=== PATIENT | female | born 1940 ===

== ENCOUNTER 2018-03-27 16:47 | Inpatient (IN) | payer MEDICARE, BC ==
[~2018-03-27] VITALS: Ht 160 cm; Wt 54.1 kg
[2018-03-27 20:00] VITALS: BP 173/81
[2018-03-27] MEDS ORDERED: DOCUSATE 100 MG CAPSULE PO PRN (20:30)
[2018-03-27] MEDS ORDERED: TEMAZEPAM 15 MG CAPSULE PO PRN (20:30)
[2018-03-27] MEDS ORDERED: PLEASE ENTER ALLERGIES MC SCH (21:00)
[2018-03-27 21:38] LABS: INTERNATIONAL NORMALIZED RATIO 0.98 (0.93-1.1); PROTHROMBIN TIME 10.2 Seconds (9.6-11.5)
[2018-03-27 21:40] LABS: ALANINE AMINOTRANSFERASE 20 U/L (12-78); ALBUMIN 3.8 g/dL (3.4-5.0); ANION GAP 9 mmol/L (5-15); CALCIUM 8.9 mg/dL (8.5-10.1); CHLORIDE 99 mmol/L (98-107); CREATININE 0.89 mg/dL (0.55-1.02)
[2018-03-27 21:42] LABS: ALKALINE PHOSPHATASE 70 U/L (45-117); BILIRUBIN,TOTAL 0.4 mg/dL (0.2-1.0); TOTAL PROTEIN 7.6 g/dL (6.4-8.2)
[2018-03-27] MEDS ORDERED: HEPARIN 5,000 UNITS/ML, 1ML IV PRN (22:00)
[2018-03-27] MEDS ORDERED: HEPARIN 25,000 UNITS/500ML PMX 500 ML IV PRN (22:00)
[2018-03-27] MEDS ORDERED: HEPARIN 5,000 UNITS/ML, 1ML IV ONE (22:00)
[2018-03-27 22:38] LABS: BASOPHILS # (AUTO) 0.04 x10^3/uL (0-0.1); BASOPHILS % (AUTO) 1 % (0-1); EOSINOPHILS # (AUTO) 0.11 x10^3/uL (0-0.4); EOSINOPHILS % (AUTO) 1 % (1-7); LYMPHOCYTES # (AUTO) 2.33 x10^3/uL (1-3.4); LYMPHOCYTES % (AUTO) 29 % (22-44); MD NO; MEAN CORPUSCULAR HEMOGLOBIN 30.1 pg (27.0-34.8); MEAN CORPUSCULAR HGB CONC 33.1 g/dL (32.4-35.8); MEAN PLATELET VOLUME 6.4 fL (7.4-10.4); MONOCYTES # (AUTO) 1.28 x10^3/uL (0.2-0.8); MONOCYTES % (AUTO) 16 % (2-9); NEUTROPHILS % (AUTO) 54 % (42-75); PLATELET COUNT 277 x10^3/uL (130-400); RED BLOOD COUNT 3.64 x10^6/uL (3.82-5.3)
[2018-03-27] MEDS ORDERED: ATOR20TA9 PO (22:40)
[2018-03-27] MEDS ORDERED: ACET-711 PO (22:40)
[2018-03-27] MEDS ORDERED: LEVO88TA2 PO (22:40)
[2018-03-27] MEDS ORDERED: AMLO10TA6 PO (22:40)
[2018-03-27] MEDS ORDERED: CARV-39 PO (22:40)
[2018-03-28 02:57] VITALS: BP 144/53
[2018-03-28] MEDS ORDERED: LIDOCAINE-MPF 1%, 5ML ONE ×2 (07:07)
[2018-03-28] MEDS ORDERED: FENTANYL PF 100 MCG/2ML ONE (07:13)
[2018-03-28] MEDS ORDERED: NITROGLYCERIN 5 MG/ML, 10ML ONE (07:14)
[2018-03-28] MEDS ORDERED: PROTAMINE SULFATE 10 MG/ML, 25ML ONE (07:14)
[2018-03-28] MEDS ORDERED: NALOXONE 1 MG/ML, 2ML ONE (07:14)
[2018-03-28] MEDS ORDERED: HEPARIN 1,000 UNITS/ML, 10ML ONE (07:14)
[2018-03-28] MEDS ORDERED: ALTEPLASE 10 MG in SODIUM CHLORIDE 0.9% 90 ML IV SCH (08:30)
[2018-03-28] MEDS ORDERED: ALTEPLASE 100 MG in BAG 1 EACH IV ONE (08:30)
[2018-03-28] MEDS ORDERED: HEPARIN 25,000 UNITS/500ML PMX 500 ML IV SCH (08:35)
[2018-03-28] MEDS: morphine SULFATE 10 MG/ML, 1ML IVPush PRN ×2 (09:12→19:48)
[2018-03-28] MEDS: AMLODIPINE 5 MG TABLET PO SCH (09:12)
[2018-03-28 10:33] LABS: BASOPHILS # (AUTO) 0.06 x10^3/uL (0-0.1); BASOPHILS % (AUTO) 1 % (0-1); EOSINOPHILS # (AUTO) 0.05 x10^3/uL (0-0.4); EOSINOPHILS % (AUTO) 1 % (1-7); LYMPHOCYTES # (AUTO) 1.96 x10^3/uL (1-3.4); LYMPHOCYTES % (AUTO) 28 % (22-44); MD NO; MEAN CORPUSCULAR HEMOGLOBIN 29.3 pg (27.0-34.8); MEAN CORPUSCULAR HGB CONC 32.8 g/dL (32.4-35.8); MEAN CORPUSCULAR VOLUME 89.2 fL (80-100); MEAN PLATELET VOLUME 6.7 fL (7.4-10.4); MONOCYTES # (AUTO) 0.79 x10^3/uL (0.2-0.8); MONOCYTES % (AUTO) 12 % (2-9); NEUTROPHILS # (AUTO) 4.05 x10^3/uL (1.8-6.8); NEUTROPHILS % (AUTO) 59 % (42-75); PLATELET COUNT 279 x10^3/uL (130-400); RED BLOOD COUNT 3.87 x10^6/uL (3.82-5.3); RED CELL DISTRIBUTION WIDTH 14.9 % (9.6-15.2)
[2018-03-28] MEDS ORDERED: POTASSIUM CHLORIDE 20 MEQ in SODIUM CHLORIDE 0.45% 1,000 ML IV SCH (11:00)
[2018-03-28] MEDS ORDERED: POTASSIUM CHLORIDE 20 MEQ in SODIUM CHLORIDE 0.9% 250 ML IV ONE (11:00)
[2018-03-28] MEDS: ALTEPLASE 10 MG in SODIUM CHLORIDE 0.9% 90 ML IV SCH ×3 (12:16→21:36)
[2018-03-28 15:18] LABS: BASOPHILS # (AUTO) 0.05 x10^3/uL (0-0.1); BASOPHILS % (AUTO) 1 % (0-1); EOSINOPHILS # (AUTO) 0.05 x10^3/uL (0-0.4); EOSINOPHILS % (AUTO) 1 % (1-7); LYMPHOCYTES # (AUTO) 2.34 x10^3/uL (1-3.4); LYMPHOCYTES % (AUTO) 27 % (22-44); MD NO; MEAN CORPUSCULAR HEMOGLOBIN 29.6 pg (27.0-34.8); MEAN CORPUSCULAR VOLUME 89.6 fL (80-100); MEAN PLATELET VOLUME 6.8 fL (7.4-10.4); MONOCYTES # (AUTO) 0.97 x10^3/uL (0.2-0.8); MONOCYTES % (AUTO) 11 % (2-9); NEUTROPHILS # (AUTO) 5.18 x10^3/uL (1.8-6.8); NEUTROPHILS % (AUTO) 60 % (42-75); PLATELET COUNT 261 x10^3/uL (130-400); RED BLOOD COUNT 3.83 x10^6/uL (3.82-5.3); RED CELL DISTRIBUTION WIDTH 14.8 % (9.6-15.2)
[2018-03-28] MEDS: POTASSIUM CHLORIDE 20 MEQ TAB.ER.PRT PO SCH (16:50)
[2018-03-28] MEDS: CARVEDILOL 25 MG TABLET PO SCH (16:50)
[2018-03-28] MEDS ORDERED: POTASSIUM CHLORIDE 20 MEQ TAB.ER.PRT PO SCH (17:00)
[2018-03-28] MEDS: ONDANSETRON ODT 4 MG PO PRN (19:41)
[2018-03-28] MEDS: ATORVASTATIN 20 MG TABLET PO SCH (19:55)
[2018-03-28 20:39] LABS: BASOPHILS # (AUTO) 0.06 x10^3/uL (0-0.1); BASOPHILS % (AUTO) 1 % (0-1); EOSINOPHILS # (AUTO) 0.01 x10^3/uL (0-0.4); EOSINOPHILS % (AUTO) 0 % (1-7); LYMPHOCYTES # (AUTO) 1.07 x10^3/uL (1-3.4); LYMPHOCYTES % (AUTO) 11 % (22-44); MD NO; MEAN CORPUSCULAR HGB CONC 33.4 g/dL (32.4-35.8); MEAN CORPUSCULAR VOLUME 89.8 fL (80-100); MEAN PLATELET VOLUME 6.9 fL (7.4-10.4); MONOCYTES # (AUTO) 0.52 x10^3/uL (0.2-0.8); MONOCYTES % (AUTO) 5 % (2-9); NEUTROPHILS # (AUTO) 8.15 x10^3/uL (1.8-6.8); NEUTROPHILS % (AUTO) 83 % (42-75); PLATELET COUNT 257 x10^3/uL (130-400); RED BLOOD COUNT 3.82 x10^6/uL (3.82-5.3); RED CELL DISTRIBUTION WIDTH 14.6 % (9.6-15.2)
[2018-03-29] MEDS: ALTEPLASE 10 MG in SODIUM CHLORIDE 0.9% 90 ML IV SCH ×2 (02:36→07:20)
[2018-03-29 03:20] LABS: BASOPHILS # (AUTO) 0.02 x10^3/uL (0-0.1); BASOPHILS % (AUTO) 0 % (0-1); EOSINOPHILS % (AUTO) 0 % (1-7); LYMPHOCYTES % (AUTO) 15 % (22-44); MD NO; MEAN CORPUSCULAR HEMOGLOBIN 30.5 pg (27.0-34.8); MEAN CORPUSCULAR HGB CONC 33.6 g/dL (32.4-35.8); MEAN CORPUSCULAR VOLUME 90.9 fL (80-100); MEAN PLATELET VOLUME 7.1 fL (7.4-10.4); MONOCYTES # (AUTO) 0.76 x10^3/uL (0.2-0.8); MONOCYTES % (AUTO) 9 % (2-9); NEUTROPHILS # (AUTO) 6.48 x10^3/uL (1.8-6.8); NEUTROPHILS % (AUTO) 76 % (42-75); PLATELET COUNT 235 x10^3/uL (130-400); RED BLOOD COUNT 3.68 x10^6/uL (3.82-5.3); RED CELL DISTRIBUTION WIDTH 14.8 % (9.6-15.2)
[2018-03-29 03:32] LABS: ANION GAP 9 mmol/L (5-15); CALCIUM 8.6 mg/dL (8.5-10.1); CHLORIDE 99 mmol/L (98-107)
[2018-03-29 03:35] LABS: CREATINE KINASE, TOTAL 80 U/L (26-192); CREATININE 0.72 mg/dL (0.55-1.02)
[2018-03-29] MEDS: LEVOTHYROXINE 88 MCG TABLET PO SCH (05:53)
[2018-03-29] MEDS: CARVEDILOL 25 MG TABLET PO SCH ×2 (05:54→22:53)
[2018-03-29] MEDS ORDERED: LIDOCAINE-MPF 1%, 5ML ONE (07:57)
[2018-03-29] MEDS: AMLODIPINE 5 MG TABLET PO SCH (08:54)
[2018-03-29] MEDS: POTASSIUM CHLORIDE 20 MEQ TAB.ER.PRT PO SCH (08:55)
[2018-03-29 08:58] LABS: BASOPHILS # (AUTO) 0.08 x10^3/uL (0-0.1); BASOPHILS % (AUTO) 1 % (0-1); EOSINOPHILS % (AUTO) 0 % (1-7); LYMPHOCYTES # (AUTO) 1.08 x10^3/uL (1-3.4); LYMPHOCYTES % (AUTO) 12 % (22-44); MD NO; MEAN CORPUSCULAR HEMOGLOBIN 29.5 pg (27.0-34.8); MEAN CORPUSCULAR HGB CONC 32.9 g/dL (32.4-35.8); MEAN CORPUSCULAR VOLUME 89.8 fL (80-100); MEAN PLATELET VOLUME 6.4 fL (7.4-10.4); MONOCYTES # (AUTO) 0.53 x10^3/uL (0.2-0.8); MONOCYTES % (AUTO) 6 % (2-9); NEUTROPHILS # (AUTO) 7.71 x10^3/uL (1.8-6.8); NEUTROPHILS % (AUTO) 82 % (42-75); PLATELET COUNT 236 x10^3/uL (130-400); RED BLOOD COUNT 3.47 x10^6/uL (3.82-5.3); RED CELL DISTRIBUTION WIDTH 14.9 % (9.6-15.2)
[2018-03-29] MEDS: ONDANSETRON ODT 4 MG PO PRN ×2 (09:00→16:21)
[2018-03-29] MEDS ORDERED: PROTAMINE SULFATE 10 MG/ML, 25ML ONE (09:59)
[2018-03-29] MEDS ORDERED: NITROGLYCERIN 5 MG/ML, 10ML ONE (09:59)
[2018-03-29] MEDS ORDERED: FENTANYL PF 100 MCG/2ML ONE ×2 (09:59→10:50)
[2018-03-29] MEDS ORDERED: NALOXONE 1 MG/ML, 2ML ONE (09:59)
[2018-03-29] MEDS ORDERED: HEPARIN 1,000 UNITS/ML, 10ML ONE ×2 (09:59→17:21)
[2018-03-29] MEDS ORDERED: HYDROmorphone 1 MG/ML, 1ML ONE (11:07)
[2018-03-29] MEDS ORDERED: HEPARIN 25,000 UNITS/500ML PMX 500 ML IV PRN (12:00)
[2018-03-29] MEDS ORDERED: HEPARIN PROTOCOL IIB/IIIA POST-LYTIC MC SCH (12:00)
[2018-03-29] MEDS ORDERED: HEPARIN 5,000 UNITS/ML, 1ML IV ONE (12:00)
[2018-03-29] MEDS: morphine SULFATE 10 MG/ML, 1ML IVPush PRN ×2 (12:03→16:21)
[2018-03-29 15:17] LABS: BASOPHILS # (AUTO) 0.02 x10^3/uL (0-0.1); BASOPHILS % (AUTO) 0 % (0-1); EOSINOPHILS % (AUTO) 0 % (1-7); LYMPHOCYTES # (AUTO) 1.97 x10^3/uL (1-3.4); LYMPHOCYTES % (AUTO) 18 % (22-44); MD NO; MEAN CORPUSCULAR HEMOGLOBIN 29.4 pg (27.0-34.8); MEAN CORPUSCULAR VOLUME 88.9 fL (80-100); MEAN PLATELET VOLUME 6.8 fL (7.4-10.4); MONOCYTES # (AUTO) 1.29 x10^3/uL (0.2-0.8); MONOCYTES % (AUTO) 12 % (2-9); NEUTROPHILS # (AUTO) 7.52 x10^3/uL (1.8-6.8); NEUTROPHILS % (AUTO) 70 % (42-75); PLATELET COUNT 212 x10^3/uL (130-400); RED BLOOD COUNT 3.16 x10^6/uL (3.82-5.3)
[2018-03-29] MEDS ORDERED: FENTANYL PF 100 MCG/2ML IV PRN (17:00)
[2018-03-29] MEDS ORDERED: MEPERIDINE/PF 25MG/0.5ML IVPush PRN (17:00)
[2018-03-29] MEDS ORDERED: PROMETHAZINE 25 MG SUPP PR PRN (17:00)
[2018-03-29] MEDS ORDERED: OXYcodone 5 MG/5 ML ORAL.SOL UDC PO PRN (17:00)
[2018-03-29] MEDS ORDERED: ONDANSETRON ODT 8 MG PO ONE (17:00)
[2018-03-29] MEDS ORDERED: HYDROmorphone 1 MG/ML, 1ML IV PRN (17:00)
[2018-03-29] MEDS ORDERED: LABETALOL 5MG/ML, 20ML IV PRN (17:00)
[2018-03-29] MEDS ORDERED: hydrALAzine 20 MG/ML, 1ML IV PRN (17:00)
[2018-03-29] MEDS ORDERED: ONDANSETRON 2MG/ML, 2ML IV PRN (17:00)
[2018-03-29] MEDS ORDERED: PROMETHAZINE 25 MG/ML, 1ML IM PRN ×2 (17:00)
[2018-03-29] MEDS ORDERED: PROMETHAZINE 12.5 MG SUPP PR PRN (17:00)
[2018-03-29] MEDS ORDERED: MORPHINE SULFATE 4 MG/ML, 1ML IVPush PRN (17:00)
[2018-03-29] MEDS ORDERED: PROMETHAZINE 25 MG/ML, 1ML IV PRN (17:00)
[2018-03-29] MEDS ORDERED: FENTANYL PF 250 MCG/5ML ONE (17:06)
[2018-03-29] MEDS ORDERED: MIDAZOLAM 1 MG/ML, 2ML ONE (17:06)
[2018-03-29] MEDS ORDERED: PROPOFOL 10 MG/ML, 20ML ONE (17:07)
[2018-03-29] MEDS ORDERED: ROCURONIUM 10MG/ML,5ML ONE (17:07)
[2018-03-29] MEDS ORDERED: SODIUM CHLORIDE 0.9% PF 10ML ONE ×2 (17:08→21:09)
[2018-03-29] MEDS ORDERED: CEFAZOLIN 1,000 MG ONE ×4 (17:08→21:09)
[2018-03-29] MEDS ORDERED: PROTAMINE SULFATE 10 MG/ML, 5ML ONE (17:20)
[2018-03-29] MEDS ORDERED: PHENYLEPHRINE 10 MG/ML ONE (18:06)
[2018-03-29] MEDS ORDERED: ONDANSETRON 2MG/ML, 2ML ONE (18:36)
[2018-03-29] MEDS ORDERED: DEXAMETHASONE 4 MG/ML, 1ML ONE ×2 (18:36)
[2018-03-29 19:02] LABS: MEAN CORPUSCULAR HEMOGLOBIN 30.4 pg (27.0-34.8); MEAN CORPUSCULAR HGB CONC 33.6 g/dL (32.4-35.8); MEAN CORPUSCULAR VOLUME 90.4 fL (80-100); MEAN PLATELET VOLUME 7.6 fL (7.4-10.4); PLATELET COUNT 243 x10^3/uL (130-400); RED BLOOD COUNT 2.11 x10^6/uL (3.82-5.3); RED CELL DISTRIBUTION WIDTH 15.3 % (9.6-15.2)
[2018-03-29] MEDS ORDERED: GLYCOPYRROLATE 0.4 MG/2 ML, 2ML ONE (19:12)
[2018-03-29] MEDS ORDERED: NEOSTIGMINE 1 MG/ML, 10ML ONE (19:12)
[2018-03-29 19:32] LABS: MD YES
[2018-03-29 19:35] LABS: BAND#(MANUAL) 0.09 x10^3/uL; BANDS%(MANUAL) 1 % (0-7); BASOS#(MANUAL) 0.09 x10^3/uL (0-0.1); BASOS% (MANUAL) 1 % (0-1); LYMPH#(MANUAL) 1.56 x10^3/uL (1-3.4); LYMPHS% (MANUAL) 17 % (22-44); MONOS% (MANUAL) 13 % (2-9); SEG#(MANUAL) 6.26 x10^3/uL (1.8-6.8); SEGS% (MANUAL) 68 % (42-75)
[2018-03-29 19:36] LABS: <PLATELET ESTIMATE> ADEQUATE; <PLT MORPHOLOGY> NORMAL PLT MORPH; ANISOCYTOSIS 1+; OVALOCYTES 1+
[2018-03-29 19:37] LABS: POLYCHROMASIA 1+
[2018-03-29] MEDS: ATORVASTATIN 20 MG TABLET PO SCH (21:00)
[2018-03-29 23:09] LABS: ALBUMIN 2.8 g/dL (3.4-5.0); ANION GAP 10 mmol/L (5-15); CALCIUM 7.8 mg/dL (8.5-10.1); CHLORIDE 103 mmol/L (98-107); CREATININE 1.19 mg/dL (0.55-1.02)
[2018-03-29] MEDS: morphine SULFATE 10 MG/ML, 1ML IV PRN (23:53)
[2018-03-29] MEDS: CEFAZOLIN PMX 1GM/50ML 50 ML IVPB SCH (23:53)
[2018-03-30] MEDS: ONDANSETRON ODT 4 MG PO PRN (00:54)
[2018-03-30] MEDS: morphine SULFATE 10 MG/ML, 1ML IV PRN ×2 (01:12→03:30)
[2018-03-30 03:01] LABS: ANION GAP 10 mmol/L (5-15); CALCIUM 7.7 mg/dL (8.5-10.1); CHLORIDE 105 mmol/L (98-107); CREATININE 0.96 mg/dL (0.55-1.02)
[2018-03-30 03:12] LABS: BASOPHILS # (AUTO) 0.01 x10^3/uL (0-0.1); BASOPHILS % (AUTO) 0 % (0-1); EOSINOPHILS % (AUTO) 0 % (1-7); LYMPHOCYTES % (AUTO) 10 % (22-44); MD NO; MEAN CORPUSCULAR HEMOGLOBIN 30.2 pg (27.0-34.8); MEAN CORPUSCULAR HGB CONC 33.6 g/dL (32.4-35.8); MEAN CORPUSCULAR VOLUME 89.6 fL (80-100); MEAN PLATELET VOLUME 7.2 fL (7.4-10.4); MONOCYTES # (AUTO) 0.49 x10^3/uL (0.2-0.8); MONOCYTES % (AUTO) 5 % (2-9); NEUTROPHILS # (AUTO) 8.23 x10^3/uL (1.8-6.8); NEUTROPHILS % (AUTO) 85 % (42-75); PLATELET COUNT 147 x10^3/uL (130-400); RED BLOOD COUNT 3.22 x10^6/uL (3.82-5.3); RED CELL DISTRIBUTION WIDTH 14.1 % (9.6-15.2)
[2018-03-30 04:00] VITALS: BP 148/51
[2018-03-30] MEDS: LEVOTHYROXINE 88 MCG TABLET PO SCH (05:34)
[2018-03-30] MEDS: CEFAZOLIN PMX 1GM/50ML 50 ML IVPB SCH (05:34)
[2018-03-30] MEDS: CARVEDILOL 25 MG TABLET PO SCH ×2 (05:35→17:19)
[2018-03-30] MEDS ORDERED: ENOXAPARIN 30 MG/0.3 ML SQ SCH (09:00)
[2018-03-30] MEDS: AMLODIPINE 5 MG TABLET PO SCH (09:23)
[2018-03-30] MEDS: ENOXAPARIN 40 MG/0.4 ML SQ SCH (09:23)
[2018-03-30 10:19] LABS: MEAN CORPUSCULAR HEMOGLOBIN 30.8 pg (27.0-34.8); MEAN CORPUSCULAR HGB CONC 34.4 g/dL (32.4-35.8); MEAN CORPUSCULAR VOLUME 89.5 fL (80-100); MEAN PLATELET VOLUME 7.4 fL (7.4-10.4); PLATELET COUNT 148 x10^3/uL (130-400); RED BLOOD COUNT 2.77 x10^6/uL (3.82-5.3); RED CELL DISTRIBUTION WIDTH 14.5 % (9.6-15.2)
[2018-03-30] MEDS ORDERED: FUROSEMIDE 20 MG/2 ML IV ONE (10:30)
[2018-03-30 10:31] LABS: BASOPHILS # (AUTO) 0.01 x10^3/uL (0-0.1); BASOPHILS % (AUTO) 0 % (0-1); EOSINOPHILS % (AUTO) 0 % (1-7); LYMPHOCYTES # (AUTO) 1.57 x10^3/uL (1-3.4); LYMPHOCYTES % (AUTO) 14 % (22-44); MD SCAN; MONOCYTES # (AUTO) 0.98 x10^3/uL (0.2-0.8); MONOCYTES % (AUTO) 9 % (2-9); NEUTROPHILS # (AUTO) 8.75 x10^3/uL (1.8-6.8); NEUTROPHILS % (AUTO) 77 % (42-75)
[2018-03-30 15:08] LABS: MEAN CORPUSCULAR HGB CONC 34.5 g/dL (32.4-35.8); MEAN CORPUSCULAR VOLUME 89.8 fL (80-100); MEAN PLATELET VOLUME 7.2 fL (7.4-10.4); PLATELET COUNT 151 x10^3/uL (130-400); RED BLOOD COUNT 2.61 x10^6/uL (3.82-5.3); RED CELL DISTRIBUTION WIDTH 14.3 % (9.6-15.2)
[2018-03-30 15:24] LABS: BASOPHILS # (AUTO) 0.04 x10^3/uL (0-0.1); BASOPHILS % (AUTO) 0 % (0-1); EOSINOPHILS % (AUTO) 0 % (1-7); LYMPHOCYTES # (AUTO) 1.96 x10^3/uL (1-3.4); LYMPHOCYTES % (AUTO) 13 % (22-44); MD SCAN; MONOCYTES # (AUTO) 1.67 x10^3/uL (0.2-0.8); MONOCYTES % (AUTO) 11 % (2-9); NEUTROPHILS # (AUTO) 11.85 x10^3/uL (1.8-6.8); NEUTROPHILS % (AUTO) 76 % (42-75)
[2018-03-30 17:53] VITALS: BP 146/64
[2018-03-30 19:00] VITALS: BP 127/62
[2018-03-30] MEDS: ATORVASTATIN 20 MG TABLET PO SCH (20:13)
[2018-03-31 00:05] VITALS: BP 151/60
[2018-03-31] MEDS: LEVOTHYROXINE 88 MCG TABLET PO SCH (05:44)
[2018-03-31] MEDS: CARVEDILOL 25 MG TABLET PO SCH ×2 (05:44→18:23)
[2018-03-31 07:10] VITALS: BP 115/57
[2018-03-31] MEDS: AMLODIPINE 5 MG TABLET PO SCH (09:08)
[2018-03-31] MEDS: ENOXAPARIN 40 MG/0.4 ML SQ SCH (09:08)
[2018-03-31 12:57] VITALS: BP 115/58
[2018-03-31 19:33] LABS: CULTURE INDICATED? YES; MICROSCOPIC AUTO
[2018-03-31 20:42] VITALS: BP 114/56
[2018-03-31] MEDS: ATORVASTATIN 20 MG TABLET PO SCH (21:00)
[2018-04-01] VITALS (11 sets, daily range): BP systolic 94–164; BP diastolic 50–74
[2018-04-01] MEDS: ACETAMINOPHEN 325 MG TABLET PO PRN ×4 (01:10→19:55)
[2018-04-01] MEDS: CARVEDILOL 25 MG TABLET PO SCH ×2 (05:31→17:16)
[2018-04-01] MEDS: LEVOTHYROXINE 88 MCG TABLET PO SCH (05:31)
[2018-04-01 05:42] LABS: MEAN CORPUSCULAR HEMOGLOBIN 31.3 pg (27.0-34.8); MEAN CORPUSCULAR HGB CONC 33.9 g/dL (32.4-35.8); MEAN CORPUSCULAR VOLUME 92.4 fL (80-100); MEAN PLATELET VOLUME 7.1 fL (7.4-10.4); PLATELET COUNT 155 x10^3/uL (130-400); RED BLOOD COUNT 2.22 x10^6/uL (3.82-5.3); RED CELL DISTRIBUTION WIDTH 14.3 % (9.6-15.2)
[2018-04-01 06:13] LABS: BASOPHILS # (AUTO) 0.03 x10^3/uL (0-0.1); BASOPHILS % (AUTO) 0 % (0-1); EOSINOPHILS % (AUTO) 1 % (1-7); LYMPHOCYTES # (AUTO) 2.29 x10^3/uL (1-3.4); LYMPHOCYTES % (AUTO) 23 % (22-44); MD SCAN; MONOCYTES # (AUTO) 1.55 x10^3/uL (0.2-0.8); MONOCYTES % (AUTO) 15 % (2-9); NEUTROPHILS # (AUTO) 6.11 x10^3/uL (1.8-6.8); NEUTROPHILS % (AUTO) 61 % (42-75)
[2018-04-01] MEDS: AMLODIPINE 5 MG TABLET PO SCH (09:46)
[2018-04-01] MEDS: ENOXAPARIN 40 MG/0.4 ML SQ SCH (10:04)
[2018-04-01] MEDS ORDERED: HOLD MEDICATION MC ONE (12:54)
[2018-04-01] MEDS: ATORVASTATIN 20 MG TABLET PO SCH (19:55)
[2018-04-02 00:13] VITALS: BP 145/64
[2018-04-02] MEDS: ACETAMINOPHEN 325 MG TABLET PO PRN ×2 (04:23→09:58)
[2018-04-02 04:42] LABS: BASOPHILS # (AUTO) 0.04 x10^3/uL (0-0.1); BASOPHILS % (AUTO) 0 % (0-1); EOSINOPHILS # (AUTO) 0.49 x10^3/uL (0-0.4); EOSINOPHILS % (AUTO) 5 % (1-7); LYMPHOCYTES # (AUTO) 2.76 x10^3/uL (1-3.4); LYMPHOCYTES % (AUTO) 28 % (22-44); MD NO; MEAN CORPUSCULAR HEMOGLOBIN 31.2 pg (27.0-34.8); MEAN CORPUSCULAR HGB CONC 34.3 g/dL (32.4-35.8); MEAN CORPUSCULAR VOLUME 91.1 fL (80-100); MEAN PLATELET VOLUME 7.2 fL (7.4-10.4); MONOCYTES # (AUTO) 1.36 x10^3/uL (0.2-0.8); MONOCYTES % (AUTO) 14 % (2-9); NEUTROPHILS # (AUTO) 5.11 x10^3/uL (1.8-6.8); NEUTROPHILS % (AUTO) 52 % (42-75); PLATELET COUNT 200 x10^3/uL (130-400); RED BLOOD COUNT 3.65 x10^6/uL (3.82-5.3); RED CELL DISTRIBUTION WIDTH 14.7 % (9.6-15.2)
[2018-04-02 04:55] LABS: CHLORIDE 102 mmol/L (98-107)
[2018-04-02 05:04] LABS: ALANINE AMINOTRANSFERASE 27 U/L (12-78); ALBUMIN 3.1 g/dL (3.4-5.0); ALKALINE PHOSPHATASE 53 U/L (45-117); ANION GAP 8 mmol/L (5-15); BILIRUBIN,TOTAL 1.9 mg/dL (0.2-1.0); CALCIUM 7.8 mg/dL (8.5-10.1); CREATININE 0.71 mg/dL (0.55-1.02); TOTAL PROTEIN 5.9 g/dL (6.4-8.2)
[2018-04-02] MEDS: CARVEDILOL 25 MG TABLET PO SCH (06:06)
[2018-04-02] MEDS: LEVOTHYROXINE 88 MCG TABLET PO SCH (06:06)
[2018-04-02 08:39] VITALS: BP 152/66
[2018-04-02] MEDS: AMLODIPINE 5 MG TABLET PO SCH (09:58)
[2018-04-02] MEDS ORDERED: POTASSIUM PHOSPHATE 44 MEQ in SODIUM CHLORIDE 0.9% 500 ML IV ONE (13:00)
[2018-04-02] MEDS ORDERED: ASPI-621 PO (13:22)
[2018-04-02] MEDS ORDERED: CLOP75TA PO (13:22)
[2018-04-02 13:24] VITALS: BP 151/67
[2018-04-02] MEDS ORDERED: CLOPIDOGREL 75 MG TABLET PO SCH (13:30)
[2018-04-02] MEDS ORDERED: ASPIRIN 81 MG TABLET EC PO SCH (13:30)
== END 2018-04-02 16:40 | disposition home or self-care (01) | DRG 253 ==
LOC: 3NE 18:09 → CCU 03-28 09:03 → 3NW 03-30 17:46 → DCLOUNGE 04-02 16:28
PROVIDERS: ADMIT Hospitalist; ATTEND Hospitalist
PROC: B41G1ZZ Fluoroscopy of Left Lower Extremity Arteries using Low Osmolar Contrast (ICD-10-PCS; principal; 2018-03-27)
PROC: 3E05317 Introduction of Other Thrombolytic into Peripheral Artery, Percutaneous Approach (ICD-10-PCS; 2018-03-27)
PROC: 041L09N Bypass Left Femoral Artery to Posterior Tibial Artery with Autologous Venous Tissue, Open Approach (ICD-10-PCS; 2018-03-30)
PROC: 06BQ0ZZ Excision of Left Saphenous Vein, Open Approach (ICD-10-PCS; 2018-03-30)
PROC: 06L Lower Veins, Occlusion (ICD-10-PCS; 2018-03-30)
PROC: B41D1ZZ Fluoroscopy of Aorta and Bilateral Lower Extremity Arteries using Low Osmolar Contrast (ICD-10-PCS; 2018-03-30)
PROC: B41G1ZZ Fluoroscopy of Left Lower Extremity Arteries using Low Osmolar Contrast (ICD-10-PCS; 2018-03-30)
PROC: 30233N1 Transfusion of Nonautologous Red Blood Cells into Peripheral Vein, Percutaneous Approach (ICD-10-PCS; 2018-03-30)
DX: I70.212 Atherosclerosis of native arteries of extremities with intermittent claudication, left leg (principal); D62 Acute posthemorrhagic anemia; I11.9 Hypertensive heart disease without heart failure; E03.9 Hypothyroidism, unspecified; E87.6 Hypokalemia; B35.1 Tinea unguium; Z88.8 Allergy status to other drugs, medicaments and biological substances; Z82.49 Family history of ischemic heart disease and other diseases of the circulatory system; Z87.891 Personal history of nicotine dependence
CPT/HCPCS: 36415; 37211; 37214; 37241; 71045; 75710; 76770; 80048; 80053; 81001; 82040; 82550; 83735; 84100; 85014; 85018; 85025; 85384; 85520; 85610; 86850; 86900; 86923; 87081; 87086; 99156; 99157; G0378; J0690; J1100; J1170; J1644; J1650; J2250; J2405; J2704; J2710; J2720; J2997; J3010; Q0162; C1751; C1769; C1894; J1940; J2270; J2310; J2370; J7040; P9016

== ENCOUNTER 2021-01-28 07:29 | Outpatient (CLI) | payer MEDICARE, BC ==
[~2021-01-28 07:29] MED LIST: ACET-711 PO; AMLO-211 PO; ASPI81TA45 PO; ATOR20TA37 PO; CARV-39 PO; CLOP75TA PO; LEVO88TA2 PO
[2021-01-28] MEDS ORDERED: ASPI-614 PO (09:35)
[2021-01-28] MEDS ORDERED: CHOL10003 PO (09:35)
[2021-01-28] MEDS ORDERED: CLOP75TA PO (09:35)
[2021-01-28] MEDS ORDERED: RELIEF FACTOR PO (09:35)
[2021-01-28] MEDS ORDERED: JUICE PLUS PO (09:35)
[2021-01-28] MEDS ORDERED: HYDR25TA6 PO (09:35)
== END 2021-01-28 23:59 | disposition home or self-care (01) ==
LOC: CVU 07:29
PROVIDERS: ATTEND Surgery
DX: Z01.818 Encounter for other preprocedural examination (principal); I35.8 Other nonrheumatic aortic valve disorders; I70.211 Atherosclerosis of native arteries of extremities with intermittent claudication, right leg; I70.212 Atherosclerosis of native arteries of extremities with intermittent claudication, left leg
CPT/HCPCS: 36415; 71046; 80053; 85025; 93005; 93306

== ENCOUNTER 2021-01-28 07:32 | Outpatient (CLI) | payer MEDICARE, BC ==
[2021-01-28] MEDS ORDERED: CHOL10003 PO (09:35)
[2021-01-28] MEDS ORDERED: ASPI-614 PO (09:35)
[2021-01-28] MEDS ORDERED: HYDR25TA6 PO (09:35)
[2021-01-28] MEDS ORDERED: CLOP75TA PO (09:35)
[2021-01-28] MEDS ORDERED: RELIEF FACTOR PO (09:35)
[2021-01-28] MEDS ORDERED: JUICE PLUS PO (09:35)
[2021-01-28 09:57] LABS: BASOPHILS % (AUTO) 1 % (0-1); EOSINOPHILS % (AUTO) 3 % (1-7); LYMPHOCYTES % (AUTO) 21 % (22-44); MEAN CORPUSCULAR HGB CONC 34.5 g/dL (32.4-35.8); MEAN PLATELET VOLUME 6.9 fL (7.4-10.4); MONOCYTES % (AUTO) 11 % (2-9); NEUTROPHILS % (AUTO) 65 % (42-75); PLATELET COUNT 307 x10^3/uL (130-400); RED BLOOD COUNT 4.46 x10^6/uL (3.82-5.3); RED CELL DISTRIBUTION WIDTH 13.2 % (9.6-15.2)
[2021-01-28 10:00] LABS: ALBUMIN 4.1 g/dL (3.4-5.0); ANION GAP 9 mmol/L (5-15); CALCIUM 9.7 mg/dL (8.5-10.1); CHLORIDE 101 mmol/L (98-107)
[2021-01-28 10:03] LABS: ALANINE AMINOTRANSFERASE 21 U/L (12-78); ALKALINE PHOSPHATASE 57 U/L (45-117); BILIRUBIN,TOTAL 1.1 mg/dL (0.2-1.0); CREATININE 0.94 mg/dL (0.55-1.02)
== END 2021-01-28 23:59 | disposition home or self-care (01) ==
LOC: STAR 07:32
PROVIDERS: ATTEND Surgery
DX: Z01.818 Encounter for other preprocedural examination (principal)
CPT/HCPCS: 36415; 71046; 80053; 85025; 93005

== ENCOUNTER 2021-02-11 08:44 | Inpatient (IN) | payer MEDICARE, BC ==
[~2021-02-11] VITALS: Ht 157.5 cm; Wt 60.0 kg
[~2021-02-11 08:44] MED LIST changes: +ASPI-614 PO; +CHOL10003 PO; +HYDR25TA6 PO; +JUICE PLUS PO; +RELIEF FACTOR PO
[2021-02-11] MEDS ORDERED: FENTANYL PF 250 MCG/5ML ONE ×2 (08:50→13:25)
[2021-02-11] MEDS ORDERED: LACTATED RINGERS 1,000 ML IV SCH (09:30)
[2021-02-11] MEDS ORDERED: CHLORHEXIDINE 15 ML UDC PO ONE (09:30)
[2021-02-11 09:41] VITALS: BP 171/77
[2021-02-11 10:01] LABS: ALBUMIN 4.1 g/dL (3.4-5.0); ANION GAP 8 mmol/L (5-15); CALCIUM 9.4 mg/dL (8.5-10.1); CHLORIDE 104 mmol/L (98-107)
[2021-02-11 10:04] LABS: ALANINE AMINOTRANSFERASE 22 U/L (12-78); ALKALINE PHOSPHATASE 59 U/L (45-117); BILIRUBIN,TOTAL 0.6 mg/dL (0.2-1.0); CREATININE 0.96 mg/dL (0.55-1.02); TOTAL PROTEIN 7.7 g/dL (6.4-8.2)
[2021-02-11] MEDS ORDERED: EPINEPHRINE 1 MG/ML, 1ML ONE (10:28)
[2021-02-11] MEDS ORDERED: HEPARIN 1,000 UNITS/ML, 10ML ONE (10:28)
[2021-02-11] MEDS ORDERED: PROTAMINE SULFATE 10 MG/ML, 5ML ONE (10:28)
[2021-02-11] MEDS ORDERED: BUPIVACAINE/PF 0.5% ONE (10:28)
[2021-02-11] MEDS ORDERED: THROMBIN 20,000 UNIT VIAL TP ONE (10:28)
[2021-02-11] MEDS ORDERED: BUPIVACAINE/PF-EPI 0.5% 1:200K IM ONE (11:57)
[2021-02-11] MEDS ORDERED: GLYCOPYRROLATE 0.2MG/1ML, 5ML ONE (12:02)
[2021-02-11] MEDS ORDERED: PROPOFOL 10 MG/ML, 20ML ONE (12:02)
[2021-02-11] MEDS ORDERED: DEXAMETHASONE 4 MG/ML, 1ML ONE (12:02)
[2021-02-11] MEDS ORDERED: ROCURONIUM 10MG/ML,5ML ONE (12:02)
[2021-02-11] MEDS ORDERED: NEOSTIGMINE 1 MG/ML, 10ML ONE (12:02)
[2021-02-11] MEDS ORDERED: CEFAZOLIN 1,000 MG ONE (12:02)
[2021-02-11] MEDS ORDERED: ONDANSETRON 2MG/ML, 2ML ONE (12:02)
[2021-02-11] MEDS: D5%-0.45% NACL 1,000 ML IV SCH (13:30)
[2021-02-11] MEDS ORDERED: ACETAMINOPHEN 650 MG/20.3 ML UDC PO PRN (13:30)
[2021-02-11] MEDS: HYDROcodone/APAP 5/325 TABLET PO PRN ×2 (17:24→21:42)
[2021-02-11 20:57] VITALS: BP 127/85
[2021-02-11] MEDS: CARVEDILOL 25 MG TABLET PO SCH (21:07)
[2021-02-12 01:27] VITALS: BP 131/59
[2021-02-12] MEDS: LEVOTHYROXINE 88 MCG TABLET PO SCH (05:14)
[2021-02-12] MEDS: ATORVASTATIN 20 MG TABLET PO SCH (05:15)
[2021-02-12 06:05] LABS: BASOPHILS % (AUTO) 0 % (0-1); EOSINOPHILS % (AUTO) 0 % (1-7); LYMPHOCYTES % (AUTO) 11 % (22-44); MEAN CORPUSCULAR HEMOGLOBIN 33.2 pg (27.0-34.8); MEAN CORPUSCULAR HGB CONC 34.4 g/dL (32.4-35.8); MONOCYTES % (AUTO) 7 % (2-9); NEUTROPHILS % (AUTO) 82 % (42-75); PLATELET COUNT 232 x10^3/uL (130-400); RED BLOOD COUNT 3.42 x10^6/uL (3.82-5.3); RED CELL DISTRIBUTION WIDTH 13.1 % (9.6-15.2)
[2021-02-12 06:13] LABS: ALBUMIN 2.8 g/dL (3.4-5.0); ANION GAP 6 mmol/L (5-15); CALCIUM 8.3 mg/dL (8.5-10.1); CHLORIDE 103 mmol/L (98-107); CREATININE 0.82 mg/dL (0.55-1.02)
[2021-02-12 07:00] VITALS: BP 121/70
[2021-02-12] MEDS: HEPARIN 5,000 UNITS/ML, 1ML SQ SCH ×3 (08:33→23:46)
[2021-02-12] MEDS: CARVEDILOL 25 MG TABLET PO SCH ×2 (08:33→21:09)
[2021-02-12] MEDS: ASPIRIN 81 MG TABLET CHEW PO SCH (08:33)
[2021-02-12] MEDS: CLOPIDOGREL 75 MG TABLET PO SCH (08:34)
[2021-02-12] MEDS: HYDROCHLOROTHIAZIDE 25 MG TABLET PO SCH (08:34)
[2021-02-12] MEDS: AMLODIPINE 10 MG TAB PO SCH (08:34)
[2021-02-12] MEDS: CHOLECALCIFEROL 1,000 UNIT TABLET PO SCH (08:34)
[2021-02-12] MEDS: D5%-0.45% NACL 1,000 ML IV SCH (08:41)
[2021-02-12] MEDS: HYDROcodone/APAP 5/325 TABLET PO PRN (09:43)
[2021-02-12] MEDS ORDERED: POTASSIUM CHLORIDE 20 MEQ TAB.ER.PRT ONE (09:45)
[2021-02-12] MEDS: POTASSIUM CHLORIDE 20 MEQ TAB.ER.PRT PO SCH ×4 (09:46→16:00)
[2021-02-12 15:00] VITALS: BP 144/73
[2021-02-12] MEDS ORDERED: CALCIUM CARBONATE 500 MG TAB.CHEW PO PRN (15:00)
[2021-02-12 21:04] VITALS: BP 141/67
[2021-02-13] MEDS ORDERED: hydrALAzine 20 MG/ML, 1ML IV ONE
[2021-02-13 00:03] VITALS: BP 177/71
[2021-02-13] MEDS: D5%-0.45% NACL 1,000 ML IV SCH (00:18)
[2021-02-13 01:13] VITALS: BP 137/67
[2021-02-13] MEDS: ATORVASTATIN 20 MG TABLET PO SCH (05:22)
[2021-02-13] MEDS: LEVOTHYROXINE 88 MCG TABLET PO SCH (05:22)
[2021-02-13 08:11] VITALS: BP 166/68
[2021-02-13] MEDS ORDERED: ONDANSETRON 2MG/ML, 2ML IVPush PRN (08:30)
[2021-02-13] MEDS: HEPARIN 5,000 UNITS/ML, 1ML SQ SCH (08:33)
[2021-02-13] MEDS: ASPIRIN 81 MG TABLET CHEW PO SCH (08:33)
[2021-02-13] MEDS: CHOLECALCIFEROL 1,000 UNIT TABLET PO SCH (08:34)
[2021-02-13] MEDS: CLOPIDOGREL 75 MG TABLET PO SCH (08:34)
[2021-02-13] MEDS: HYDROCHLOROTHIAZIDE 25 MG TABLET PO SCH ×2 (08:34→08:46)
[2021-02-13] MEDS: CARVEDILOL 25 MG TABLET PO SCH (08:34)
[2021-02-13] MEDS: AMLODIPINE 10 MG TAB PO SCH (08:34)
[2021-02-13] MEDS ORDERED: HYDR-2214 PO (10:39)
[2021-02-13 10:56] VITALS: BP 134/72
[2021-02-13 13:17] VITALS: BP 155/70
[2021-02-13 13:52] VITALS: BP 148/72
== END 2021-02-13 15:13 | disposition home or self-care (01) | DRG 254 ==
LOC: ORIP 08:44 → 4NE 15:41
PROVIDERS: ADMIT Surgery; ATTEND Surgery
PROC: 04UK0KZ Supplement Right Femoral Artery with Nonautologous Tissue Substitute, Open Approach (ICD-10-PCS; 2021-02-11)
PROC: 04CK0ZZ Extirpation of Matter from Right Femoral Artery, Open Approach (ICD-10-PCS; principal; 2021-02-11 10:30)
DX: I70.213 Atherosclerosis of native arteries of extremities with intermittent claudication, bilateral legs (principal); Z20.822 Contact with and (suspected) exposure to COVID-19; E87.6 Hypokalemia; F17.210 Nicotine dependence, cigarettes, uncomplicated; I10 Essential (primary) hypertension; E78.5 Hyperlipidemia, unspecified; E03.9 Hypothyroidism, unspecified; Z88.5 Allergy status to narcotic agent; Z82.49 Family history of ischemic heart disease and other diseases of the circulatory system
CPT/HCPCS: 36415; 80048; 80053; 82040; 84132; 85025; 87635; C1729; G0378; J0171; J0690; J1100; J1644; J2405; J2704; J2710; J2720; J3010; C1768; J0360; J7120